=== PATIENT | male | born 1965 | race Caucasian/White ===

== ENCOUNTER 2019-12-07 14:44 | Emergency (ER) | payer SELFPAY ==
[~2019-12-07] VITALS: Ht 167.6 cm; Wt 79.8 kg
[2019-12-07 14:58] VITALS: Ht 167.6 cm; Wt 79.8 kg
[2019-12-07 15:40] LABS: BASOPHIL % 0.6 % (0-2); PLATELET COUNT 327 x10^3mcL (130-400); RED CELL DISTRIBUTION WIDTH 13.9 % (11.5-14.5)
[2019-12-07 15:52] LABS: CALCIUM 8.7 mg/dL (8.5-10.1); CARBON DIOXIDE 26.3 mmol/L (21-32); CREATININE SERUM 1.5 mg/dL (0.7-1.3); POTASSIUM SERUM 3.9 mmol/L (3.5-5.1)
[2019-12-07 15:57] LABS: BILIRUBIN TOTAL 0.7 mg/dL (0.20-1.00); TOTAL PROTEIN, SERUM 7.7 g/dL (6.4-8.2)
[2019-12-07 16:25] LABS: microscopic required? YES; urine erythrocyte 3+ (NEGATIVE)
[2019-12-07 16:45] VITALS: BP 116/75
== END 2019-12-07 16:45 | disposition home or self-care (01) ==
LOC: ED 14:44
PROVIDERS: Emergency Medicine
DX: N21.1 Calculus in urethra (principal); F17.210 Nicotine dependence, cigarettes, uncomplicated; R03.0 Elevated blood-pressure reading, without diagnosis of hypertension; Z98.890 Other specified postprocedural states
CPT/HCPCS: 99406; J1885; J2405; J7030